=== PATIENT | male | born 1955 | race Caucasian/White ===

== ENCOUNTER → 2017-02-24 | Outpatient (CLI) | payer OTHER ==
--- NOTE | 2017-02-24 10:27 | RAD ---
EXAM: Right knee, 2 views HISTORY: Right knee pain. COMPARISON: None. FINDINGS: No fractures are identified. There is minimal medial compartmental joint space narrowing. There is a tiny osteophyte along the course of the medial tibial plateau. Alignment is normal. There is no joint effusion. IMPRESSION: 1. 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
== END | disposition home or self-care (01) ==
LOC: RAD 09:45
DX: M17.11 Unilateral primary osteoarthritis, right knee (principal)
CPT/HCPCS: 73560